=== PATIENT | male | born 1990 | race Two or more races ===

== ENCOUNTER 2018-06-11 06:02 | Emergency (ER) | payer MEDICAID ==
[~2018-06-11] VITALS: Ht 172.7 cm; Wt 111.0 kg
[~2018-06-11 06:02] MED LIST: ALB0.5UD IH; DIPH-423 PO; FAMO-1 PO; HYDR-569 PO; LEVA15HF4 IH; NO HOME MEDS; PRED20TA PO; TAM75C PO
[2018-06-11] MEDS ORDERED: proCHLORperazine 10mg tablet PO ONE (06:50)
[2018-06-11 07:06] VITALS: BP 189/110
[2018-06-11] MEDS ORDERED: AMLO5TAB4 PO (07:19)
== END 2018-06-11 07:25 | disposition home or self-care (01) ==
LOC: ER 06:03
DX: G47.00 Insomnia, unspecified (principal); I10 Essential (primary) hypertension; F12.10 Cannabis abuse, uncomplicated; F15.10 Other stimulant abuse, uncomplicated; F11.10 Opioid abuse, uncomplicated; G89.29 Other chronic pain; M54.9 Dorsalgia, unspecified
CPT/HCPCS: 93005; 99283; Q0164